=== PATIENT | female | born 1970 | race Caucasian/White ===

== ENCOUNTER → 2016-07-09 | Day surgery (SDC) | payer BC, MEDICARE ==
[~2016-07-09] VITALS: Ht 157.5 cm; Wt 77.2 kg
[~2016-07-09] MED LIST: BUSPIRONE HCL15 MG PO; PREMARIN0.3 MG PO; PRILOSEC20 MG PO; SINGULAIR10 MG PO; TOPAMAX100 M1 PO; TOPAMAX100 MG
== END | disposition disaster alternative care site (69) ==
LOC: GPOC 07-02 17:00 → GEND 06:51 → GPOC 15:00
PROC: 0DJ08ZZ Inspection of Upper Intestinal Tract, Via Natural or Artificial Opening Endoscopic (ICD-10-PCS; principal; 2016-07-09)
DX: K21.0 Gastro-esophageal reflux disease with esophagitis (principal); G43.909 Migraine, unspecified, not intractable, without status migrainosus; F32.9 Major depressive disorder, single episode, unspecified; F17.210 Nicotine dependence, cigarettes, uncomplicated; Z90.49 Acquired absence of other specified parts of digestive tract; Z90.710 Acquired absence of both cervix and uterus; Z79.899 Other long term (current) drug therapy
CPT/HCPCS: J2001; J7030